=== PATIENT | female | born 1980 | race African-American/Black ===

== ENCOUNTER 2021-11-29 15:02 | Outpatient (CLI) | payer BC ==
[2021-11-29 22:15] LABS: SARS-CoV-2 PCR by NAA Not Detected (NotDetected)
== END 2021-11-29 15:03 | disposition home or self-care (01) ==
LOC: CSHLAB 15:02
PROVIDERS: ATTEND Family Medicine
DX: Z20.822 Contact with and (suspected) exposure to COVID-19 (principal)
CPT/HCPCS: U0003; U0005

== ENCOUNTER 2021-12-02 10:47 | Outpatient (CLI) | payer BC | END 2021-12-02 10:48 | disposition home or self-care (01) | LOC: CSHRAD 10:47 | PROVIDERS: ATTEND Otolaryngology Plastic Surgery within the Head & Neck | DX: R13.11 Dysphagia, oral phase (principal); J38.00 Paralysis of vocal cords and larynx, unspecified | CPT/HCPCS: 74220; 74230 ==

== ENCOUNTER 2022-12-29 13:47 | Outpatient (CLI) | payer BC | END 2022-12-29 13:48 | disposition home or self-care (01) | LOC: CSHULT 13:47 | PROVIDERS: ATTEND Otolaryngology Plastic Surgery within the Head & Neck | DX: E04.1 Nontoxic single thyroid nodule (principal); E07.89 Other specified disorders of thyroid | CPT/HCPCS: 76536 ==